=== PATIENT | male | born 1930 | race African-American/Black ===

== ENCOUNTER → 2016-06-23 | Outpatient (CLI) | payer MEDICARE, OTHER ==
[~2016-06-23] MED LIST: ASCO500C6 PO; ASPI-1093 PO; CHOL10002 PO; FURO40 PO; GUAI100S13 PO; LISI20TA PO; NIFE30TA5 PO; POTA8CAP10 PO; SILD50TA PO; SIME80TA12 PO; SIMV-260 PO; TERA5 PO; VITA400T9 PO
== END | disposition home or self-care (01) ==
LOC: RADPV 08:17
PROVIDERS: ATTEND Legal Medicine
DX: G45.9 Transient cerebral ischemic attack, unspecified (principal)
CPT/HCPCS: 93880

== ENCOUNTER → 2016-11-13 | Outpatient (CLI) | payer MEDICARE, OTHER | END | disposition home or self-care (01) | LOC: RADPV 13:23 | PROVIDERS: ATTEND Legal Medicine | DX: I70.201 Unspecified atherosclerosis of native arteries of extremities, right leg (principal); I70.202 Unspecified atherosclerosis of native arteries of extremities, left leg; I79.8 Other disorders of arteries, arterioles and capillaries in diseases classified elsewhere; I80.10 Phlebitis and thrombophlebitis of unspecified femoral vein | CPT/HCPCS: 93925; 93970 ==

== ENCOUNTER → 2016-12-02 | Outpatient (CLI) | payer MEDICARE, OTHER | END | disposition home or self-care (01) | LOC: RADPV 07:56 | PROVIDERS: ATTEND Legal Medicine | DX: M51.36 Other intervertebral disc degeneration, lumbar region (principal); M51.37 Other intervertebral disc degeneration, lumbosacral region; M47.896 Other spondylosis, lumbar region | CPT/HCPCS: 72100 ==

== ENCOUNTER → 2018-07-14 | Outpatient (CLI) | payer MEDICARE, OTHER ==
[~2018-07-14] MED LIST changes: -ASPI-1093 PO; +ASPI-1188 PO; -TERA5 PO; +TERA5CAP12 PO
== END | disposition home or self-care (01) ==
LOC: RADPV 08:13
PROVIDERS: ATTEND Legal Medicine
DX: I66.8 Occlusion and stenosis of other cerebral arteries (principal)
CPT/HCPCS: 93880

== ENCOUNTER → 2018-10-28 | Outpatient (CLI) | payer MEDICARE, OTHER ==
[~2018-10-28] MED LIST changes: -ASPI-1188 PO; +ASPI-1419 PO; -POTA8CAP10 PO; +POTA8CAP20 PO
== END | disposition home or self-care (01) ==
LOC: RADPV 07:34
PROVIDERS: ATTEND Legal Medicine
DX: M19.072 Primary osteoarthritis, left ankle and foot (principal); M77.32 Calcaneal spur, left foot; M10.9 Gout, unspecified

== ENCOUNTER 2019-03-30 21:56 | Emergency (ER) | payer MEDICARE, OTHER ==
[~2019-03-30] VITALS: Ht 182.9 cm; Wt 90.9 kg
[~2019-03-30 21:56] MED LIST changes: -ASPI-1419 PO; +ASPI-1522 PO
[2019-03-30 23:56] LABS: APPEARANCE,URINE CLEAR (CLEAR); BILIRUBIN,URINE NEGATIVE (NEGATIVE); GLUCOSE, URINE (UA) NEGATIVE (NEGATIVE); KETONES,URINE NEGATIVE (NEGATIVE); LEUKOCYTE ESTERASE ,URINE NEGATIVE (NEGATIVE); NITRATE,URINE NEGATIVE (NEGATIVE); OCCULT BLOOD,URINE SMALL (NEGATIVE); PH,URINE 6.5 (5.0-8.0); PROTEIN,URINE NEGATIVE (NEGATIVE); UROBILINOGEN,URINE 0.2 mg/dL (<=1.0)
[2019-03-31 00:04] LABS: BASOPHILS % (AUTO) 0.5 % (0.0-2.0); EOSINOPHILS % (AUTO) 5.3 % (1.0-6.0); HEMATOCRIT 31.5 % (41-53); HEMOGLOBIN 10.3 g/dL (13.5-17.5); LYMPHOCYTES # (AUTO) 2.1 K/uL (1.0-4.8); LYMPHOCYTES % (AUTO) 24.6 % (22.0-44.0); MEAN CORPUSCULAR HEMOGLOBIN 32.8 pg (26.0-34.0); MEAN CORPUSCULAR HGB CONC 32.8 G/dL (31.0-37.0); MEAN CORPUSCULAR VOLUME 100 fL (80-100); MONOCYTES # (AUTO) 1.4 K/uL (0.1-1.0); MONOCYTES % (AUTO) 15.5 % (2.0-9.0); NEUTROPHILS # (AUTO) 4.7 K/uL (1.8-7.7); NEUTROPHILS % (AUTO) 54.1 % (40.0-70.0); PLATELET COUNT (AUTO) 176 K/uL (150-450); RED BLOOD CELL COUNT(AUTO) 3.14 MIL/uL (4.50-5.90); RED CELL DISTRIBUTION WIDTH 12.7 % (11.5-14.5)
[2019-03-31 00:07] LABS: ANION GAP 5 mmol/L (8-16); CALCIUM, TOTAL 8.8 mg/dL (8.8-10.5); CARBON DIOXIDE 30 mmol/L (22-29); CHLORIDE 106 mmol/L (98-107); CREATININE 1.16 mg/dL (0.60-1.30); GLOMERULAR FILTR. RATE CALC > 60 mL/min (>60); GLUCOSE,RANDOM 104 mg/dL (70-110); POTASSIUM 4.3 mmol/L (3.5-5.1); SODIUM SERUM 141 mmol/L (136-145); UREA NITROGEN, BLOOD 18 mg/dL (7-18)
[2019-03-31 00:13] LABS: ALANINE AMINOTRANSFERASE 9 U/L (12-78); ALBUMIN 3.4 g/dL (3.4-5.0); ALKALINE PHOSPHATASE 53 U/L (46-116); ASPARTATE AMINOTRANSFERASE 15 U/L (15-37); BILIRUBIN,TOTAL 0.4 mg/dL (0.1-1.0); TOTAL PROTEIN, SERUM 7.2 g/dL (6.4-8.2)
[2019-03-31 00:16] LABS: BACTERIA,URINE None Seen /HPF (None Seen); SQUAMOUS EPITHELIAL CELL,UR Rare /LPF (None Seen)
[2019-03-31 00:17] LABS: WBC,URINE 0-2 /HPF (0-5)
[2019-03-31] MEDS ORDERED: SODIUM CHLORIDE 0.9% 100 ML ONE (00:24)
[2019-03-31] MEDS ORDERED: IOVERSOL 350 MG/ML 100 ML VIAL ONE (00:24)
[2019-03-31] MEDS ORDERED: LIDOCAINE 5% TRANSDERMAL PATCH TD ONE (00:30)
[2019-03-31] MEDS ORDERED: ACETAMINOPHEN 325 MG TABLET PO ONE (00:30)
[2019-03-31 03:25] VITALS: BP 154/68
== END 2019-03-31 03:33 | disposition home or self-care (01) ==
LOC: EMS 21:57
DX: R10.31 Right lower quadrant pain (principal); I10 Essential (primary) hypertension; Z79.899 Other long term (current) drug therapy; Z79.82 Long term (current) use of aspirin
CPT/HCPCS: 36415; 74176; 80053; 81001; 85025; 99284; J7050; Q9967